=== PATIENT | female | born 1935 | race Caucasian/White ===

== ENCOUNTER 2022-03-03 19:10 | Inpatient (IN) | payer MEDICARE ==
[2022-03-03] MEDS ORDERED: Ondansetron PF 4 MG/2 ML Vial ONE (19:38)
[2022-03-03 20:03] LABS: Hemoglobin 12.6 g/dL (12.0-16.0); Mean Corpuscular HGB CONC 32.9 g/dL (32.0-36.0); Mean Corpuscular Volume 97.1 fl (78.0-98.0); Mean Platelet Volume 8.9 fL (7.4-10.4); Platelet Count 120 10x3/uL (130-400); Red Blood Cell (RBC) Count 3.93 mill/uL (4.20-5.40); White Blood Cell (WBC) Count 14.3 10x3/uL (4.8-10.8)
[2022-03-03 20:22] LABS: ALT (SGPT) 22 U/L (8-55); AST (SGOT) 27 U/L (5-34); Albumin 3.6 g/dL (3.4-4.8); Alkaline Phosphatase 69 U/L (40-110); Anion Gap 13 mmol/L (10-20); BUN (Urea Nitrogen) 30 mg/dL (9.8-20.1); Bilirubin, Total 1.1 mg/dL (0.2-1.2); Calc. Creatinine Clearance 0 mL/min (70-130); Calcium 8.8 mg/dL (7.8-10.44); Carbon Dioxide 22 mmol/L (23-31); Chloride 99 mmol/L (98-107); Estimated GFR 54; Globulin 2.2 g/dL (2.4-3.5); Glucose 130 mg/dL (83-110); Lipase 6 U/L (8-78); Protein, Total 5.8 g/dL (5.8-8.1); Sodium 130 mmol/L (136-145)
[2022-03-03 20:34] LABS: Band 26 % (5-11); Lymphocytes 2 % (21-51); MDiff Complete? YES; Monocytes 2 % (0-10); Neutrophil 69 % (42-75); Platelet Morphology Comment Appears Decreased; RBC Morphology Normal; Reactive Lymphocytes 1 % (0-10)
[2022-03-03 20:44] LABS: CKMB 1.7 ng/mL (0-6.6)
[2022-03-03] MEDS ORDERED: cefTRIAXone\\ROCEPHIN 1 GM VIAL ONE (21:28)
[2022-03-03 22:33] LABS: Bilirubin Negative (Negative); Blood, Urine Trace (Negative); Clarity Turbid (Clear); Glucose, Urine (Dipstick) Normal (Negative); Ketone, Urine Negative (Negative); Leukocyte 500 Leu/uL (Negative); Nitrite Negative (Negative); Protein, Urine (Dipstick) 100 mg/dL (Neg-Trace); Specific Gravity, Urine 1.018 (1.002-1.036); Squamous Epithelial 21-50 HPF (0-3); Urobilinogen Normal mg/dL (Less than 2); WBC/HPF 21-50 HPF (0-3); pH, Urine 5.5 (5.0-9.0)
[2022-03-03 22:40] LABS: Bacteria/HPF 1+ HPF (None Seen)
[2022-03-03] MEDS ORDERED: Aspirin Chewable 81 MG TAB ONE (22:41)
[2022-03-03] MEDS ORDERED: Ondansetron PF 4 MG/2 ML Vial IVP PRN (22:42)
[2022-03-03] MEDS ORDERED: Senokot S 8.6-50 MG TAB PO PRN (22:42)
[2022-03-03] MEDS ORDERED: Sodium Chloride 0.9% 1,000 ML IV SCH (22:45)
[2022-03-03] MEDS ORDERED: cefTRIAXone Sodium 1 MG in Syringe 0 ML IVPB SCH (23:00)
[2022-03-03 23:41] LABS: Troponin I 0.075 ng/mL (< 0.028)
[2022-03-04 00:28] VITALS: BMI 20.5
[2022-03-04 02:36] LABS: Troponin I 0.082 ng/mL (< 0.028)
[2022-03-04 02:49] LABS: #Lymphocytes 0.5 thou/uL (1.20-3.40); #Monocytes 0.9 thou/uL (0.11-0.59); #Neutrophils 9.6 thou/uL (1.40-6.50); %Basophils 0.1 % (0.0-1.0); %Eosinophils 0.2 % (0.0-10.0); %Lymphocytes 4.2 % (21.0-51.0); %Monocytes 8.4 % (0.0-10.0); %Neutrophils 87.2 % (42.0-75.0); Hemoglobin 11.2 g/dL (12.0-16.0); Mean Corpuscular HGB CONC 33.4 g/dL (32.0-36.0); Mean Corpuscular Hemoglobin 33.1 pg (27.0-31.0); Mean Corpuscular Volume 99.2 fl (78.0-98.0); Mean Platelet Volume 9.2 fL (7.4-10.4); Platelet Count 105 10x3/uL (130-400); RBC Distribution Width 12.8 % (11.5-14.5); Red Blood Cell (RBC) Count 3.38 mill/uL (4.20-5.40)
[2022-03-04 02:56] LABS: ALT (SGPT) 19 U/L (8-55); AST (SGOT) 22 U/L (5-34); Alkaline Phosphatase 57 U/L (40-110); Anion Gap 13 mmol/L (10-20); BUN (Urea Nitrogen) 30 mg/dL (9.8-20.1); Bilirubin, Total 0.6 mg/dL (0.2-1.2); Calc. Creatinine Clearance 32 mL/min (70-130); Calcium 8.4 mg/dL (7.8-10.44); Carbon Dioxide 21 mmol/L (23-31); Chloride 102 mmol/L (98-107); Estimated GFR 51; Globulin 2.4 g/dL (2.4-3.5); Glucose 137 mg/dL (83-110); Potassium 3.9 mmol/L (3.5-5.1); Protein, Total 5.4 g/dL (5.8-8.1); Sodium 132 mmol/L (136-145)
[2022-03-04] MEDS ORDERED: Aspirin 81 mg Enteric Coated Tablet PO SCH (09:00)
[2022-03-04] MEDS ORDERED: Bisoprolol Fumarate 5 MG TAB PO SCH ×2 (09:00)
[2022-03-04] MEDS ORDERED: predniSONE 5 MG/5 ML UDCUP PO SCH (09:00)
[2022-03-04] MEDS: Losartan 25 MG TAB PO SCH (10:03)
[2022-03-04] MEDS: Famotidine 20 MG TAB PO SCH (10:03)
[2022-03-04] MEDS: Enoxaparin Sodium 30 MG/0.3 ML SYRINGE SC SCH (10:04)
[2022-03-04 13:58] LABS: #Eosinphils 0.1 thou/uL (0.0-0.7); #Lymphocytes 0.5 thou/uL (1.20-3.40); %Basophils 0.4 % (0.0-1.0); %Eosinophils 0.7 % (0.0-10.0); %Lymphocytes 4.5 % (21.0-51.0); %Monocytes 9.5 % (0.0-10.0); %Neutrophils 84.9 % (42.0-75.0); Hemoglobin 10.4 g/dL (12.0-16.0); Mean Corpuscular HGB CONC 32.5 g/dL (32.0-36.0); Mean Corpuscular Volume 98.2 fl (78.0-98.0); Platelet Count 103 10x3/uL (130-400); RBC Distribution Width 12.9 % (11.5-14.5); Red Blood Cell (RBC) Count 3.26 mill/uL (4.20-5.40); White Blood Cell (WBC) Count 10.6 10x3/uL (4.8-10.8)
[2022-03-04] MEDS: Rosuvastatin 10 MG TAB PO SCH (20:57)
[2022-03-04] MEDS ORDERED: cefTRIAXone\\ROCEPHIN 1 GM in Sodium Chloride 0.9% 100 ML IVPB SCH (21:00)
[2022-03-05] MEDS: Acetaminophen 325 MG TAB PO PRN (03:18)
[2022-03-05 04:06] LABS: #Eosinphils 0.1 thou/uL (0.0-0.7); #Lymphocytes 0.6 thou/uL (1.20-3.40); #Monocytes 0.8 thou/uL (0.11-0.59); #Neutrophils 7.4 thou/uL (1.40-6.50); %Basophils 0.3 % (0.0-1.0); %Eosinophils 1.6 % (0.0-10.0); %Lymphocytes 7.1 % (21.0-51.0); %Monocytes 8.8 % (0.0-10.0); %Neutrophils 82.2 % (42.0-75.0); Hemoglobin 10.9 g/dL (12.0-16.0); Mean Corpuscular HGB CONC 33.9 g/dL (32.0-36.0); Mean Corpuscular Hemoglobin 33.4 pg (27.0-31.0); Mean Corpuscular Volume 98.3 fl (78.0-98.0); Mean Platelet Volume 8.8 fL (7.4-10.4); Platelet Count 104 10x3/uL (130-400); RBC Distribution Width 12.7 % (11.5-14.5); Red Blood Cell (RBC) Count 3.26 mill/uL (4.20-5.40)
[2022-03-05 04:29] LABS: Anion Gap 12 mmol/L (10-20); BUN (Urea Nitrogen) 23 mg/dL (9.8-20.1); Calc. Creatinine Clearance 37 mL/min (70-130); Calcium 7.9 mg/dL (7.8-10.44); Carbon Dioxide 22 mmol/L (23-31); Chloride 103 mmol/L (98-107); Estimated GFR 61; Glucose 100 mg/dL (83-110); Potassium 3.5 mmol/L (3.5-5.1); Sodium 133 mmol/L (136-145)
[2022-03-05] MEDS: Aspirin Chewable 81 MG TAB PO SCH (10:04)
[2022-03-05] MEDS: predniSONE 20 MG TAB PO SCH (10:04)
[2022-03-05] MEDS: Bisoprolol Fumarate 5 MG TAB PO SCH (10:05)
[2022-03-05] MEDS: DULoxetine 60 MG CAP PO SCH (10:06)
[2022-03-05] MEDS: Famotidine 20 MG TAB PO SCH (10:06)
[2022-03-05] MEDS: Enoxaparin Sodium 30 MG/0.3 ML SYRINGE SC SCH (10:06)
[2022-03-05] MEDS: Losartan 25 MG TAB PO SCH (10:07)
[2022-03-05] MEDS: Hydroxychloroquine Sulfate 200 MG TAB PO SCH (10:07)
[2022-03-05] MEDS: Leflunomide 10 mg Tablet PO SCH (10:07)
[2022-03-05] MEDS ORDERED: Meropenem 1 GM in Sodium Chloride 0.9% 100 ML IVPB SCH (12:00)
[2022-03-05] MEDS: Non-Formulary Item 1 EACH (Cinnamon Bark [Cinnamon] 500 MG Capsule) PO SCH (13:15)
[2022-03-05] MEDS: Meropenem 1 GM in Sodium Chloride 0.9% 100 ML IVPB SCH (20:39)
[2022-03-05] MEDS: Rosuvastatin 10 MG TAB PO SCH (20:41)
[2022-03-06 05:17] LABS: #Eosinphils 0.1 thou/uL (0.0-0.7); #Lymphocytes 0.8 thou/uL (1.20-3.40); #Monocytes 0.9 thou/uL (0.11-0.59); #Neutrophils 6.5 thou/uL (1.40-6.50); %Basophils 0.2 % (0.0-1.0); %Eosinophils 1.2 % (0.0-10.0); %Lymphocytes 9.4 % (21.0-51.0); %Neutrophils 78.2 % (42.0-75.0); Hemoglobin 10.5 g/dL (12.0-16.0); Mean Corpuscular HGB CONC 32.4 g/dL (32.0-36.0); Mean Corpuscular Hemoglobin 31.8 pg (27.0-31.0); Mean Corpuscular Volume 98.2 fl (78.0-98.0); Mean Platelet Volume 9.2 fL (7.4-10.4); Platelet Count 128 10x3/uL (130-400); RBC Distribution Width 12.8 % (11.5-14.5); White Blood Cell (WBC) Count 8.3 10x3/uL (4.8-10.8)
[2022-03-06 05:34] LABS: Anion Gap 11 mmol/L (10-20); BUN (Urea Nitrogen) 25 mg/dL (9.8-20.1); Calc. Creatinine Clearance 44 mL/min (70-130); Calcium 7.9 mg/dL (7.8-10.44); Carbon Dioxide 21 mmol/L (23-31); Chloride 107 mmol/L (98-107); Estimated GFR 75; Glucose 101 mg/dL (83-110); Sodium 135 mmol/L (136-145)
[2022-03-06] MEDS: Losartan 25 MG TAB PO SCH (06:27)
[2022-03-06] MEDS: Meropenem 1 GM in Sodium Chloride 0.9% 100 ML IVPB SCH ×2 (11:04→21:31)
[2022-03-06] MEDS: Bisoprolol Fumarate 5 MG TAB PO SCH (11:05)
[2022-03-06] MEDS: DULoxetine 60 MG CAP PO SCH (11:05)
[2022-03-06] MEDS: Enoxaparin Sodium 30 MG/0.3 ML SYRINGE SC SCH (11:05)
[2022-03-06] MEDS: Aspirin Chewable 81 MG TAB PO SCH (11:05)
[2022-03-06] MEDS: predniSONE 20 MG TAB PO SCH (11:05)
[2022-03-06] MEDS: Hydroxychloroquine Sulfate 200 MG TAB PO SCH (11:06)
[2022-03-06] MEDS: Famotidine 20 MG TAB PO SCH (11:06)
[2022-03-06] MEDS: Leflunomide 10 mg Tablet PO SCH (11:06)
[2022-03-06] MEDS: Rosuvastatin 10 MG TAB PO SCH (21:31)
[2022-03-06] MEDS: Acetaminophen 325 MG TAB PO PRN (21:33)
[2022-03-07] MEDS: Losartan 25 MG TAB PO SCH (05:00)
[2022-03-07 05:04] LABS: #Eosinphils 0.1 thou/uL (0.0-0.7); #Monocytes 0.7 thou/uL (0.11-0.59); #Neutrophils 5.3 thou/uL (1.40-6.50); %Basophils 0.4 % (0.0-1.0); %Eosinophils 0.9 % (0.0-10.0); %Lymphocytes 14.1 % (21.0-51.0); %Monocytes 9.9 % (0.0-10.0); %Neutrophils 74.8 % (42.0-75.0); Hemoglobin 11.5 g/dL (12.0-16.0); Mean Corpuscular HGB CONC 32.4 g/dL (32.0-36.0); Mean Corpuscular Hemoglobin 31.9 pg (27.0-31.0); Mean Corpuscular Volume 98.5 fl (78.0-98.0); Mean Platelet Volume 8.8 fL (7.4-10.4); Platelet Count 166 10x3/uL (130-400); RBC Distribution Width 12.8 % (11.5-14.5); White Blood Cell (WBC) Count 7.1 10x3/uL (4.8-10.8)
[2022-03-07 05:25] LABS: Anion Gap 11 mmol/L (10-20); BUN (Urea Nitrogen) 21 mg/dL (9.8-20.1); Calc. Creatinine Clearance 40 mL/min (70-130); Calcium 8.2 mg/dL (7.8-10.44); Carbon Dioxide 25 mmol/L (23-31); Chloride 106 mmol/L (98-107); Estimated GFR 66; Glucose 93 mg/dL (83-110); Potassium 4.3 mmol/L (3.5-5.1); Sodium 138 mmol/L (136-145)
[2022-03-07] MEDS: Enoxaparin Sodium 30 MG/0.3 ML SYRINGE SC SCH (09:53)
[2022-03-07] MEDS: Meropenem 1 GM in Sodium Chloride 0.9% 100 ML IVPB SCH (09:53)
[2022-03-07] MEDS: Bisoprolol Fumarate 5 MG TAB PO SCH (09:53)
[2022-03-07] MEDS: Aspirin Chewable 81 MG TAB PO SCH (09:54)
[2022-03-07] MEDS: Famotidine 20 MG TAB PO SCH (09:54)
[2022-03-07] MEDS: DULoxetine 60 MG CAP PO SCH (09:54)
[2022-03-07] MEDS: predniSONE 20 MG TAB PO SCH (09:54)
[2022-03-07] MEDS: Hydroxychloroquine Sulfate 200 MG TAB PO SCH (09:55)
[2022-03-07] MEDS: Leflunomide 10 mg Tablet PO SCH (09:55)
[2022-03-07 12:41] VITALS: TEMP 98.8
[2022-03-07 13:16] VITALS: BP 154/76
[2022-03-08] MEDS ORDERED: Amlodipine 5 MG TAB PO SCH (09:00)
== END 2022-03-07 14:50 | disposition home health service (06) | DRG 871 ==
LOC: ERS 19:10 → 2NO 22:24 → OBSVTOIN 03-04 16:35
PROVIDERS: ADMIT Internal Medicine Nephrology; ATTEND Hospitalist
DX: A41.9 Sepsis, unspecified organism (principal); G93.41 Metabolic encephalopathy; J96.01 Acute respiratory failure with hypoxia; N17.9 Acute kidney failure, unspecified; E87.20 Acidosis, unspecified; N39.0 Urinary tract infection, site not specified; J98.11 Atelectasis; Z66 Do not resuscitate; Z20.822 Contact with and (suspected) exposure to COVID-19; E86.0 Dehydration; I10 Essential (primary) hypertension; Z93.3 Colostomy status; Z90.49 Acquired absence of other specified parts of digestive tract; Z90.09 Acquired absence of other part of head and neck; Z79.899 Other long term (current) drug therapy; Z79.82 Long term (current) use of aspirin; Z79.52 Long term (current) use of systemic steroids
CPT/HCPCS: 36415; 70450; 71045; 71275; 80048; 80053; 81003; 81015; 82553; 83605; 83690; 84484; 85025; 87040; 87086; 93005; 93306; 96372; 96374; 96375; G0378; J0696; J1650; J2185; J2405; J3490; J7050; J7512; U0003; U0005

== ENCOUNTER 2022-03-31 12:25 | Inpatient (IN) | payer MEDICARE ==
[2022-03-31 13:18] LABS: #Lymphocytes 0.8 thou/uL (1.20-3.40); #Neutrophils 16.7 thou/uL (1.40-6.50); %Basophils 0.2 % (0.0-1.0); %Eosinophils 0.2 % (0.0-10.0); %Lymphocytes 4.5 % (21.0-51.0); %Monocytes 5.5 % (0.0-10.0); %Neutrophils 89.7 % (42.0-75.0); Hemoglobin 14.7 g/dL (12.0-16.0); Mean Corpuscular HGB CONC 32.2 g/dL (32.0-36.0); Mean Corpuscular Hemoglobin 31.3 pg (27.0-31.0); Mean Corpuscular Volume 97.4 fl (78.0-98.0); Mean Platelet Volume 9.5 fL (7.4-10.4); Platelet Count 219 10x3/uL (130-400); RBC Distribution Width 13.9 % (11.5-14.5); Red Blood Cell (RBC) Count 4.69 mill/uL (4.20-5.40); White Blood Cell (WBC) Count 18.6 10x3/uL (4.8-10.8)
[2022-03-31 13:43] LABS: ALT (SGPT) 18 U/L (8-55); AST (SGOT) 27 U/L (5-34); Albumin 4.3 g/dL (3.4-4.8); Alkaline Phosphatase 70 U/L (40-110); Anion Gap 18 mmol/L (10-20); BUN (Urea Nitrogen) 52 mg/dL (9.8-20.1); Bilirubin, Total 0.9 mg/dL (0.2-1.2); Calc. Creatinine Clearance 0 mL/min (70-130); Calcium 10.2 mg/dL (7.8-10.44); Carbon Dioxide 17 mmol/L (23-31); Chloride 102 mmol/L (98-107); Estimated GFR 22; Globulin 3.2 g/dL (2.4-3.5); Glucose 171 mg/dL (83-110); Potassium 5.2 mmol/L (3.5-5.1); Protein, Total 7.5 g/dL (5.8-8.1); Sodium 132 mmol/L (136-145)
[2022-03-31] MEDS ORDERED: Cefepime 2 GM VIAL ONE (14:10)
[2022-03-31] MEDS ORDERED: Vancomycin 1 GM/200 ML (FROZEN) BAG ONE (14:10)
[2022-03-31] MEDS ORDERED: Promethazine HCl 12.5 MG in Sodium Chloride 0.9% 50 ML IVPB SCH (14:15)
[2022-03-31] MEDS ORDERED: Acetaminophen 325 MG TAB PO PRN (15:37)
[2022-03-31] MEDS ORDERED: Ondansetron PF 4 MG/2 ML Vial IVP PRN (15:37)
[2022-03-31] MEDS ORDERED: Senokot S 8.6-50 MG TAB PO PRN (15:37)
[2022-03-31] MEDS ORDERED: Ondansetron ODT 4 MG TAB PO PRN (15:37)
[2022-03-31] MEDS ORDERED: Sodium Chloride 0.9% 1,000 ML IV SCH (15:45)
[2022-03-31 16:49] LABS: Magnesium 1.8 mg/dL (1.6-2.6); Phosphorus 4.4 mg/dL (2.3-4.7)
[2022-03-31 16:50] LABS: Lactic Acid 1.2 mmol/L (0.5-2.2)
[2022-03-31 17:19] LABS: Troponin I 0.228 ng/mL (< 0.028)
[2022-03-31 17:28] LABS: Anion Gap 13 mmol/L (10-20); BUN (Urea Nitrogen) 55 mg/dL (9.8-20.1); Calc. Creatinine Clearance 0 mL/min (70-130); Calcium 8.4 mg/dL (7.8-10.44); Carbon Dioxide 14 mmol/L (23-31); Chloride 109 mmol/L (98-107); Estimated GFR 28; Glucose 147 mg/dL (83-110); Potassium 4.7 mmol/L (3.5-5.1); Sodium 131 mmol/L (136-145)
[2022-03-31] MEDS ORDERED: Aspirin 325 mg Enteric Coated Tablet PO SCH (17:32)
[2022-03-31] MEDS ORDERED: Acetaminophen 325 MG TAB ONE (18:20)
[2022-03-31] MEDS ORDERED: Aspirin 325 MG TAB ONE (19:20)
[2022-03-31 20:17] LABS: Troponin I 0.389 ng/mL (< 0.028)
[2022-03-31 20:20] LABS: Bacteria/HPF 4+ HPF (None Seen); Bilirubin Negative (Negative); Blood, Urine Negative (Negative); Clarity Turbid (Clear); Glucose, Urine (Dipstick) Normal (Negative); Ketone, Urine Trace mg/dL (Negative); Leukocyte 75 Leu/uL (Negative); Mucous/LPF Rare LPF (<2+); Nitrite Negative (Negative); Protein, Urine (Dipstick) 30 mg/dL (Neg-Trace); RBC/HPF 0-3 HPF (0-3); Specific Gravity, Urine 1.025 (1.002-1.036); Squamous Epithelial 0-3 HPF (0-3); Urobilinogen Normal mg/dL (Less than 2)
[2022-03-31] MEDS ORDERED: Rosuvastatin 10 MG TAB PO SCH (21:00)
[2022-03-31] MEDS ORDERED: Famotidine 20 MG TAB PO SCH (21:00)
[2022-03-31] MEDS ORDERED: Heparin 5,000 UNITS/ML VIAL SC SCH (21:00)
[2022-03-31 23:28] LABS: Troponin I 0.559 ng/mL (< 0.028)
[2022-03-31] MEDS ORDERED: Enoxaparin Sodium 60 MG/0.6 ML SYRINGE SC SCH (23:59)
[2022-04-01] MEDS ORDERED: Enoxaparin Sodium 60 MG/0.6 ML SYRINGE ONE (00:31)
[2022-04-01 05:48] LABS: Anion Gap 12 mmol/L (10-20); BUN (Urea Nitrogen) 48 mg/dL (9.8-20.1); Calc. Creatinine Clearance 0 mL/min (70-130); Calcium 8.5 mg/dL (7.8-10.44); Carbon Dioxide 17 mmol/L (23-31); Chloride 111 mmol/L (98-107); Estimated GFR 32; Glucose 86 mg/dL (83-110); Potassium 4.3 mmol/L (3.5-5.1); Sodium 136 mmol/L (136-145)
[2022-04-01 06:05] LABS: #Basophils 0.1 thou/uL (0.0-0.2); #Eosinphils 0.1 thou/uL (0.0-0.7); #Lymphocytes 1.5 thou/uL (1.20-3.40); #Monocytes 0.9 thou/uL (0.11-0.59); #Neutrophils 9.4 thou/uL (1.40-6.50); %Basophils 0.5 % (0.0-1.0); %Eosinophils 0.6 % (0.0-10.0); %Lymphocytes 12.4 % (21.0-51.0); %Monocytes 7.2 % (0.0-10.0); %Neutrophils 79.2 % (42.0-75.0); Hemoglobin 11.4 g/dL (12.0-16.0); Mean Corpuscular HGB CONC 32.6 g/dL (32.0-36.0); Mean Corpuscular Hemoglobin 32.1 pg (27.0-31.0); Mean Corpuscular Volume 98.6 fl (78.0-98.0); Mean Platelet Volume 9.1 fL (7.4-10.4); Platelet Count 156 10x3/uL (130-400); RBC Distribution Width 13.7 % (11.5-14.5); Red Blood Cell (RBC) Count 3.54 mill/uL (4.20-5.40); White Blood Cell (WBC) Count 11.8 10x3/uL (4.8-10.8)
[2022-04-01] MEDS ORDERED: predniSONE 20 MG TAB PO SCH (08:00)
[2022-04-01] MEDS ORDERED: Amlodipine 5 MG TAB ONE (08:25)
[2022-04-01] MEDS ORDERED: Aspirin Chewable 81 MG TAB ONE (08:25)
[2022-04-01] MEDS ORDERED: predniSONE 20 MG TAB ONE (08:25)
[2022-04-01] MEDS ORDERED: Losartan 25 MG TAB PO SCH (09:00)
[2022-04-01] MEDS ORDERED: Amlodipine 5 MG TAB PO SCH (09:00)
[2022-04-01] MEDS ORDERED: Aspirin Chewable 81 MG TAB PO SCH (09:00)
[2022-04-01] MEDS ORDERED: Hydroxychloroquine Sulfate 200 MG TAB PO SCH (09:00)
[2022-04-01] MEDS ORDERED: DULoxetine 60 MG CAP PO SCH (09:00)
[2022-04-01] MEDS ORDERED: Bisoprolol Fumarate 5 MG TAB PO SCH (09:00)
[2022-04-01] MEDS ORDERED: Leflunomide 10 mg Tablet PO SCH (09:00)
[2022-04-01 12:52] LABS: Campy jejuni + coli by PCR Negative (Negative); STEC Shiga Toxin 1+2 Negative (Negative); Salmonella spp. by PCR Negative (Negative); Shigella spp + EIEC by PCR Negative (Negative)
[2022-04-01 14:40] VITALS: BMI 21.4
[2022-04-01 17:02] VITALS: BP 98/54; TEMP 97.4
[2022-04-01] MEDS ORDERED: Enoxaparin Sodium 80 MG/0.8 ML SYRINGE SC SCH (23:34)
[2022-04-02] MEDS ORDERED: Enoxaparin Sodium 40 MG/0.4 ML SYRINGE SC SCH (09:00)
== END 2022-04-01 17:26 | disposition home or self-care (01) | DRG 871 ==
LOC: ERS 12:25 → ERHOLD 15:29 → 2NO 04-01 14:33
PROVIDERS: ADMIT Internal Medicine; ATTEND Internal Medicine
DX: A41.89 Other specified sepsis (principal); I21.A1 Myocardial infarction type 2; N17.9 Acute kidney failure, unspecified; A08.39 Other viral enteritis; E87.20 Acidosis, unspecified; R65.20 Severe sepsis without septic shock; I10 Essential (primary) hypertension; M06.9 Rheumatoid arthritis, unspecified; E87.5 Hyperkalemia; Z20.822 Contact with and (suspected) exposure to COVID-19; K21.9 Gastro-esophageal reflux disease without esophagitis; R73.9 Hyperglycemia, unspecified; I71.20 Thoracic aortic aneurysm, without rupture, unspecified; Z90.49 Acquired absence of other specified parts of digestive tract; Z98.890 Other specified postprocedural states; Z88.2 Allergy status to sulfonamides; Z79.82 Long term (current) use of aspirin; Z79.899 Other long term (current) drug therapy
CPT/HCPCS: 36415; 71045; 74176; 80048; 80053; 81003; 81015; 82553; 83605; 83630; 83690; 83735; 84100; 84484; 85025; 87324; 87449; 87505; 87798; 87804; 93005; J0692; J1644; J1650; J2550; J3370-JW; J7050; J7512; U0003; U0005

== ENCOUNTER 2024-02-21 13:13 | Outpatient (CLI) | payer MEDICARE | END 2024-02-21 13:14 | disposition home or self-care (01) | LOC: SCSRAD 13:13 | PROVIDERS: ATTEND Nurse Practitioner Family | DX: R05.1 Acute cough (principal); J18.1 Lobar pneumonia, unspecified organism | CPT/HCPCS: 71046 ==